=== PATIENT | female | born 1995 ===

== ENCOUNTER 2017-11-10 09:09 | Emergency (ER) | payer BC ==
[2017-11-10 09:18] VITALS: BMI 18.9
[2017-11-10] MEDS ORDERED: ceFAZolin 1 GM in Sodium Chloride 0.9% 100 ML IVPB ONE (10:24)
--- NOTE | 2017-11-10 10:26 | RAD ---
PROCEDURE: Right Foot Radiographs. HISTORY: distal foot pain/swelling no trauma COMPARISON: None. FINDINGS: BONES: No acute fracture or destructive bony lesion identified. JOINTS: Normal. SOFT TISSUES: Normal. OTHER FINDINGS: None. IMPRESSION: Unremarkable right foot radiographs.
--- NOTE | 2017-11-10 10:34 | CP.PCM.CON ---
History of Present Illness - History of Present Illness History of Present Illness: Podiatry Consult Note- Dr. Hernandez 22 y/o female with PMHx of recently diagnosed IBS seen in ED for right atraumatic foot pain. Pt states it started when she woke up yesterday morning and was unable to bear weight on the bottom part of her forefoot, underneath the 4th toe. Denies any change in shoegear. Denies use of any new products on the foot. 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 Admits to a recent diagnosis of IBS 3 weeks ago for which she was given Rifaximin. Denies noting any breaks in the skin or any purulence. Denies F/C/N/V/CP/SOB PSHx: denies All: NKDA Social: denies EtOH, cigarette or illicit drug use Review of Systems - Review of Systems All systems: reviewed and no additional remarkable complaints except (per HPI) Past Patient History - Past Social History Smoking Status: Never Smoked - PSYCHIATRIC Hx Psychophysiologic Disorder: Yes Hx Substance Use: No - SURGICAL HISTORY Hx Surgeries: No - ANESTHESIA Hx Anesthesia: No Meds Home Medications: Home Medication List Medication Instructions Recorded Confirmed Type Amoxicillin/Clavulanate [Augmentin 1 tab PO BID #14 tab 11/10/17 Rx 875 MG-125 MG] Naproxen [Naprosyn] 500 mg PO BID PRN #14 tablet 11/10/17 Rx Allergies/Adverse Reactions: Allergies Allergy/AdvReac Type Severity Reaction Status Date / Time No Known Allergies Allergy Verified 11/10/17 09:23 - Medications Medications: Current Medications Cefazolin Sodium 1 gm/ Sodium (Chloride) 100 mls @ 100 mls/hr IVPB ONCE ONE PRN Reason: Protocol Stop: 11/10/17 11:23 Physical Exam - Constitutional Appears: Well, Non-toxic, No Acute Distress - Extremities Exam Additional comments: Right lower extremity focused exam: Vasc: DP/PT pulses palpable 2/4. Temperature gradient warm to cool. CFT < 3 sec to all digits. Mild localized pedal edema noted sub met 4. Derm: Mild localized erythematous region noted sub met 4. No breaks in skin or soft tissue. No open lesions, no streaking cellulitis, no purulence or drainage Ortho: Point tenderness sub met 4. Mild tenderness elicited plantar sub met 4 upon passive extension of 4th digit - Neurological Exam Neurological exam: Alert, Oriented x3 - Psychiatric Exam Psychiatric exam: Normal Affect, Normal Mood Results - Vital Signs Recent Vital Signs: Last Vital Signs Temp 97.9 F 11/10/17 09:17 Pulse 86 11/10/17 09:17 Resp 16 11/10/17 09:17 BP 125/87 11/10/17 09:17 Pulse Ox 100 11/10/17 09:17 - Labs Result Diagrams: 11/10/17 11:05 11/10/17 11:05 Assessment & Plan - Assessment and Plan (Free Text) Assessment: 22 y/o female with right atraumatic foot pain with plantar forefoot erythema, likely secondary to mild localized skin infection Plan: Pt seen and evaluated in ED Discussed with attending Dr. Hernandez CBC shows no leukocytosis R foot x-rays reviewed - unremarkable, no acute osseous abnormalities, no soft tissue envelope deficits Surgical shoe dispensed with crutches - pt advised that may use crutches as needed and offload the forefoot with heel touch WB as much as possible Pt recommended to follow up with level vial curvature gauger locally for continued management to prevent worsening of skin infection Advised patient that if she notices the foot turns red, hot, swollen or sees pus to return to the emergency department Given dose of IV Cefazolin in ED, recommend PO abx on discharge Thank you for allowing us to participate in patient care
[2017-11-10 11:24] LABS: BASO # 0.1 K/uL (0.0-0.2); EOS # 0.2 K/uL (0.0-0.7); EOS % 3.6 % (0.0-4.0); HEMOGLOBIN 14.5 g/dL (12.0-16.0); LYMPH # 1.7 K/uL (1.0-4.3); LYMPH % 26.1 % (20.0-40.0); MEAN CELL VOLUME 83.2 fl (81.0-99.0); MEAN CORPUSCULAR HEMOGLOBIN 27.7 pg (27.0-31.0); MEAN CORPUSCULAR HGB CONC 33.3 g/dL (33.0-37.0); MEAN PLATELET VOLUME 8.2 fl (7.2-11.7); MONO # 0.4 K/uL (0.0-0.8); MONO % 6.1 % (0.0-10.0); NEUT # 4.2 K/uL (1.8-7.0); NEUT % 63.2 % (50.0-75.0); NRBC % 0.1 % (0.0-0.0); RBC 5.24 Mil/uL (3.80-5.20); WHITE BLOOD COUNT 6.6 K/uL (4.8-10.8)
[2017-11-10 11:26] LABS: BLOOD UREA NITROGEN 14 mg/dl (7-17); CALCIUM 9.5 mg/dL (8.4-10.2); GFR AFRICAN-AMERICAN > 60; GFR NON-AFRICAN AMERICAN > 60
[2017-11-10 12:07] VITALS: BP 120/76; PULSE 78; RESP 19; TEMP 97; O2SAT 98
== END 2017-11-10 12:08 | disposition home or self-care (01) ==
LOC: H.ER 09:09
DX: M79.671 Pain in right foot (principal); K58.9 Irritable bowel syndrome, unspecified; L53.9 Erythematous condition, unspecified
CPT/HCPCS: 73630; 80048; 85025; 99283; J0690